=== PATIENT | male | born 1955 | race Caucasian/White ===

== ENCOUNTER 2021-02-23 09:03 | Inpatient (IN) | payer MEDICARE ==
[~2021-02-23] VITALS: Ht 162.6 cm; Wt 82.1 kg
[2021-02-23] MEDS ORDERED: KETOROLAC 30 MG/ML 1ML VIAL IV ONE (09:55)
[2021-02-23] MEDS ORDERED: ONDANSETRON 4MG/2ML VIAL IV ONE (10:00)
[2021-02-23] MEDS ORDERED: ISOVUE-370 76% 100ML VIAL As Ordered ONE (10:34)
[2021-02-23 10:35] LABS: BASO % 0.3 % (0.0-1.0); EOS # 0.1 10^3/uL (0.0-0.5); EOS % 0.6 % (0.0-3.0); HEMATOCRIT 53.4 % (42.0-52.0); HEMOGLOBIN 18.6 g/dl (13.5-17.5); LYMPH # 0.6 10^3/uL (1.5-5.0); LYMPH % 5.3 % (24.0-44.0); MEAN CORPUSCULAR HEMOGLOBIN 31.3 pg (27.0-33.0); MEAN CORPUSCULAR HGB CONC 34.8 g/dl (32.0-36.5); MEAN CORPUSCULAR VOLUME 89.7 fl (80.0-96.0); MONO % 8.8 % (2.0-8.0); NEUTROPHILS # 9.5 10^3/uL (1.5-8.5); NEUTROPHILS % 84.4 % (36.0-66.0); PLATELET COUNT, AUTOMATED 230 10^3/uL (150-450); RED BLOOD COUNT 5.95 10^6/uL (4.30-6.10); WHITE BLOOD COUNT 11.3 10^3/uL (4.0-10.0)
[2021-02-23] MEDS ORDERED: HYDROMORPHONE HCL 0.5 MG/ 0.5 ML SYRINGE (J1170 PER 1) IV ONE (10:45)
[2021-02-23] MEDS ORDERED: NS 500 ML IV ONE (10:55)
[2021-02-23 11:04] LABS: ALBUMIN 4.2 GM/DL (3.2-5.2); ALT/SGPT 35 U/L (12-78); BILIRUBIN,DIRECT 0.3 MG/DL (0.0-0.2); BILIRUBIN,TOTAL 1.2 MG/DL (0.2-1.0); LIPASE 147 U/L (73-393); TOTAL PROTEIN 7.4 GM/DL (6.4-8.2)
--- NOTE | 2021-02-23 11:08 | REP ---
INDICATION: r flank and RLQ pain. COMPARISON: None TECHNIQUE: Axial contrast-enhanced images from the lung bases to the pubic symphysis using 100 cc Isovue 370 intravenous contrast material. Coronal and sagittal reformations obtained. This CT examination was performed using the following dose reduction techniques: Automated exposure control, adjustment of mA and/or kv according to the patient's size, and the use of iterative reconstruction technique. FINDINGS: Acute right-sided obstructive uropathy with perinephric stranding and proximal hydroureteronephrosis secondary to a 5 mm obstructing calculus at the ureteropelvic junction (series 201; images 84-86). Left kidney/ureter appears normal. Liver, spleen, pancreas, and bilateral adrenal glands are normal. Prior cholecystectomy noted. The enteric system is without obstruction or acute inflammatory process. Normal terminal ileum and appendix are identified in the right lower quadrant. Sigmoid diverticulosis noted without acute diverticulitis. Pelvis demonstrates heterogeneous mildly enlarged prostate gland with irregular mass effect on the base of the bladder. Small fat containing left inguinal hernia noted. No ascites. No free air. No adenopathy. Abdominal aorta and vasculature without aneurysm or dissection. Skeletal structures intact. Lung bases clear. IMPRESSION: Acute right-sided obstructive uropathy with a 5 mm obstructing calculus at the ureteropelvic junction. Enlarged prostate gland with irregular mass effect on the base of the bladder may warrant further investigation. Diverticulosis. <Electronically signed by Aniceto Renee > 02/23/21 [id number]
[2021-02-23] MEDS ORDERED: NS 1,000 ML IV ONE ×2 (11:10)
--- NOTE | 2021-02-23 11:31 | REP ---
INDICATION: r/o hernia COMPARISON: None. TECHNIQUE: Limited directed Grayscale B-mode ultrasound examination using linear high-frequency transducer. FINDINGS: Directed ultrasound examination of the bilateral groin/inguinal regions demonstrates a reducible fat containing left inguinal hernia at the internal ring. Inguinal defect measures approximately 1 cm and remains relatively stable and Valsalva. No evidence for right inguinal hernia. IMPRESSION: Small reducible fat containing left inguinal hernia identified. <Electronically signed by Aniceto Renee > 02/23/21 [id number]
--- NOTE | 2021-02-23 11:31 | REP ---
INDICATION: testicular pain. COMPARISON: None. TECHNIQUE: Bilateral testicular ultrasound FINDINGS: The right testicle measures 3.8 x 2.4 x 2.5 cm and the left testicle measures 4.1 x 2.2 x 2.9 cm. In the right testicle there is a hypoechoic 1.3 x 1 x 1.1 cm sized smoothly marginated structure. Color Doppler on this shows no evidence of internal blood flow. Doppler on the remainder of the testicle shows normal parenchymal blood flow. There is a small hydrocele. There is no varicocele. The left testicular parenchymal echo pattern and vascular pattern is within normal limits. There is a slight hydrocele. There is no varicocele. No significant spermatocele is seen on either side. The right testicular RI is 0.73 and the left is 0.64 IMPRESSION: Complex appearing structure in the right testicle which has diffuse near uniform low-level echoes throughout, as described above. Exact etiology uncertain. Neoplastic change cannot be completely excluded. Urological consultation is recommended. Other findings as described above. <Electronically signed by Sunil Mireles > 02/23/21 [id number]
[2021-02-23 11:47] LABS: CK-MB VALUE MASS 2.1 NG/ML (<3.6); CPK CREATINE PHOSPHOKINASE 76 U/L (39-308); MB/CK RELATIVE INDEX 2.76 (< OR =4); TROPONIN I < 0.02 NG/ML (< 0.10)
--- NOTE | 2021-02-23 12:27 | SMCUROLCON ---
Urology Consultation General Date of Consultation 02/23/21 Reason For Consultation asked to see re proximal right ureteral stone about 5mm History of Present Illness 65yo fellow with h/o stones. Presents with pain on the right, groin and scrotum. Nausea, sweating. Ct shows 5mm proximal right ureteral stone. Pain difficult to control in ER. Pt admitted for pain control, ivf, likely stent placement. Past Medical History Medical History htn, bph, hypothyroidism, sleep apnea, stones Surgical Hstory turp oral surgery cholecystectomy colonoscopy Family History Family History father and brother with prostate ca Social History Social History nonsmoker Medications Current Medications losartan, simvastatin, amlodipine, citalopram, levothyroxine, omeprazole, soratinex Allergies Allergies: Coded Allergies: No Known Allergies (Unverified , 02/23/21) Review of Systems General: Denies: Night Sweats Constitutional: Reports: Sweats Eyes: Denies: Vision change ENT: Denies: Head Aches Skin: Denies: Jaundice Pulmonary: Denies: Dyspnea Cardiovascular: Denies Chest Pain Gastrointestinal: Reports: Nausea Genitourinary: Reports: Other Symptoms (pain on right) Hematologic: Denies: Enlarged Lymph Nodes Endocrine: Denies: Polydipsia Musculoskeletal: Reports: Other Symptoms (no new bony pain) Neurological: Denies: Change in Speech Psych: Reports: Mood Normal Physical Examination General Exam: Cooperative EYE EXAM: Conjunctiva & lids normal ENT EXAM: Mucous membr. moist/pink Neck Exam: Supple Chest Exam: Clear to auscultation Heart Exam: Regular Rhythm Abdomen Exam: Soft Male Exam: Normal Genital Exam Extremity Exam: No: Cyanosis Skin Exam: Nl turgor and temperature Neuro Exam: Normal Gait Psych Exam: Mental status NL Vital Signs/I&O Vital Signs Date Time Temp Pulse Resp B/P (MAP) Pulse Ox O2 Delivery O2 Flow Rate FiO2 02/23/21 10:47 18 02/23/21 10:07 02/23/21 09:03 96.0 65 99 Room Air Laboratory Data 24H Labs Laboratory Tests 2 02/23/21 10:16: Immature Granulocyte % (Auto) 0.6, Neutrophils (%) (Auto) 84.4H, Lymphocytes (%) (Auto) 5.3L, Monocytes (%) (Auto) 8.8H, Eosinophils (%) (Auto) 0.6, Basophils (%) (Auto) 0.3, Neutrophils # (Auto) 9.5H, Lymphocytes # (Auto) 0.6L, Monocytes # (Auto) 1.0H, Eosinophils # (Auto) 0.1, Basophils # (Auto) 0.0, Nucleated Red Blood Cells % (auto) 0.0, Lactic Acid Level 6.1*H, Total Bilirubin 1.2H, Direct Bilirubin 0.3H, Aspartate Amino Transf (AST/SGOT) 21, Alanine Aminotransferase (ALT/SGPT) 35, Alkaline Phosphatase 86, Total Creatine Kinase 76, Creatine Kinase MB 2.1, Creatine Kinase MB Relative Index 2.76, Troponin I < 0.02, Total Protein 7.4, Albumin 4.2, Albumin/Globulin Ratio 1.3, Lipase 147, Thyroid Stimulating Hormone (TSH) 2.250 02/23/21 10:27: POC Glucose (Misc Panel) 133H, POC Sodium (Misc Panel) 142, POC Potassium (Misc Panel) 4.1, POC Chloride (Misc Panel) 99, POC Total CO2 (Misc Panel) 23.0, POC Blood Urea Nitrogen (Misc Panel 11, POC Ionized Calcium (Misc Panel) 4.9, POC Creatinine (Misc Panel) 1.2, POC Hematocrit (Misc Panel) 53.0H 02/23/21 11:21: Urine Color STRAW, Urine Appearance CLEAR, Urine pH 8.0, Urine Specific [place] 1.023, Urine Protein NEGATIVE, Urine Glucose (UA) NEGATIVE, Urine Ketones 1+H, Urine Blood 2+H, Urine Nitrite NEGATIVE, Urine Bilirubin NEGATIVE, Urine Urobilinogen 0.2, Urine Leukocyte Esterase NEGATIVE, Urine WBC (Auto) 2, Urine RBC (Auto) 32H, Urine Hyaline Casts (Auto) 0, Urine Bacteria (Auto) NEGATIVE, Urine Squamous Epithelial Cells 0, Urine Mucus (Auto) SMALL, Urine Sperm (Auto) CBC/BMP Laboratory Tests 02/23/21 10:16 Assessment ER called me about pt. Pt to be admitted because of pain control. Ct reviewed - stone in proximal right ureter causing mild hydro. Wbc about 11. No fevers. Elevated lactate. Creatinine normal. I put pt on schedule for cystoscopy with stent placement at 830am tomorrow. Npo post midnight. Covid testing. Plan cysto with stent tomorrow morning uscope with stone removal some other time d/w pt and he agrees Time Spent on Consult: Time Spent / Consult (Minutes): 30 YOLI LEWIS MD Feb 23, 2021 12:27
[2021-02-23] MEDS ORDERED: ACETAMINOPHEN TAB 650MG DOSE (2X325MG) PO PRN (13:00)
[2021-02-23] MEDS ORDERED: MAALOX 30 ML SUSP *UDC PO PRN (13:00)
[2021-02-23] MEDS ORDERED: MOM 30ML SUSPENSION UDC PO PRN (13:00)
[2021-02-23] MEDS ORDERED: DICL1GEL3 TOP (13:51)
[2021-02-23] MEDS ORDERED: LOSA100T50 PO (13:51)
[2021-02-23] MEDS ORDERED: OMEP-218 PO (13:51)
[2021-02-23] MEDS ORDERED: CELE1CAP9 PO (13:51)
[2021-02-23] MEDS ORDERED: AMLO1TAB24 PO (13:51)
[2021-02-23] MEDS ORDERED: LEVO50TA5 PO (13:51)
[2021-02-23] MEDS ORDERED: CITA20TA6 PO (13:51)
[2021-02-23] MEDS ORDERED: SIMV10TA21 PO (13:51)
--- NOTE | 2021-02-23 14:15 | HPEPDOC ---
General Date of Admission Date of Service: Feb 23, 2021 Chief Complaint The patient is a 65-year-old male admitted with a reason for visit of Kidney Prob. History of Present Illness HPI Pt presents w 14 hr Hx of R lower back pain which radiates along the R groin and into the testicular region. He states the pain began at 10pm last night and has increased in severity since then, he rated it at 10/10 last night and prior to admission. Pain is described as sharp and constant. He was unable to sleep d/t pain and this morning he began having nausea and felt unstable on his feet while walking and was diaphoretic. Currently the pain is being medically managed and is rated as 2/10. Pt took 2 Tylenol last night with no remission of sx, and position does not change pain. Pt has been able to urinate w/out pain, and describes urine as clear. OFF NOTE: Denies prior testicular pain or swelling Admits to previous kidney stones which he has passed at home In approx 1989-stone complication led to acute renal situation-led to nephrostomy tube placement (probable L kidney, but pt cannot recall) PMHx: HTN dyslipidemia neg Diabetes psoriasis BPH hernias sleep apnea hypothyroidism SxHx: Prostate reduction (5 years ago-sees a Urologist) hernia reduction and mesh placement cholecystectomy uvulopalatopharyngoplasty colonoscopy 4 yrs ago (revealed 1 polyp) FHx: Father Hx prostate Ca in his 70s, HTN, and bypass surgery Mother Hx diabetes, and renal disease Brother d/t stroke Brother (2) Hx prostate Ca at 63, alive and currently w Pt SHx: has never smoked, no illicit drug use, one glass of wine per night. Pt is from [place] and has been in town for 2 weeks. ROS Gen: denies fever, chills HEENT: denies vision changes, dysphagia, DOWNEY, N/V RESP: denies SOB or pain on deep inspiration CVS: denies chest pain or palpitations ABD: denies pain w bowel mvmt or blood in stool, admits to R sided lower abd pain prior to medical pain mgmt : denies dysuria, denies recent UTI, admits to urinary frequency, diminished stream strength, and mild retention post-void MSK: denies weakness or paresthesias Skin: denies swelling, rash, pruritus Physical Exam Gen: Pleasant, in no acute distress. Psych: A+Ox3 HEENT: PERRLA, EOMI, atraumatic, normocephalic, moist oral cavity, neck supple, no cervical lymphadenopathy, no JVD. RESP: CTA b/l, no rhonchi, wheezes, or crackles. CVS: RRR, no murmurs, rubs, or gallops. ABD: soft, ND, not tender to palpation, normoactive bowel sounds. MSK: plantar/dorsiflexion 5/5 b/l. Skin: no lower extremity edema, no rash, normal turgor and temp. IMAGING Scrotal, US (02/23) Complex appearing structure in the right testicle which has diffuse near uniform low-level echoes throughout, as described above. Exact etiology uncertain. Neoplastic change cannot be completely excluded. Pelvis, limited US (02/23) Small reducible fat containing left inguinal hernia identified. CT ABD/PEL W/IV CONTRAST ONLY (02/23) Reported as-Acute right-sided obstructive uropathy with a 5 mm obstructing calculus at the ureteropelvic junction. Enlarged prostate gland with irregular mass effect on the base of the bladder may warrant further investigation. Diverticulosis. Assessment Pt is a 65yo M who presented to ER w approx 14 hr Hx of R sided lower back pain which radiates to R lower quadrant, and along R groin into testicular region. PMHx significant for HTN managed w losartan, and amlodipine, dyslipidemia managed w simvastatin, psoriasis managed w soratinex, BPH, hernias, hypothyroidism managed w levothyroxine, GERD managed with omeprazole, previous nephrolithiasis which resolved w/out treatment. Pt has Hx of stone complication approx 30 yrs ago which led to acute renal situation, and was treated w nephrostomy tube placement (probable L kidney, but pt cannot recall). [Lactic acid elev at 6.1 Hgb+Hct elv at 18.6/53.4 Leukocytosis present (WBC 11.3). Pt given 2L IV fluid bolus in ED. Pt received Dilaudid 1mg IV once in ED for pain control. Plan 1. Nephrolithiasis Will order UA. Started on Ceftriaxone 50ml @ 100mls/hr IV Q24H. Ordered filter for urine to catch any stone passage. Urology has been consulted-pt is scheduled for surgery at 8:30am tomorrow. Pt may resume regular diet for now-NPO after midnight. Will follow labs. Repeat lactate was normal at 0.9. Blood cultures collected and pending. Imaging reveals pt has obstructive hydronephrosis, but BUN and creatinine are normal. 2. Testicular Mass US (02/23) reported as- complex appearing structure in the right testicle which has diffuse near uniform low-level echoes throughout. Exact etiology uncertain. Neoplastic change cannot be completely excluded-Urology will be consulted. Further evaluation needed, may need further workout during this hospital stay or in outpatient setting. 3. DVT Prophylaxis Ordered Heparin SC. 4.HTN Will c/w Amlodipine 50mg and Losartan 100mg. 5. Dyslipidemia Will c/w simvastatin 10mg PO once daily. 6. Psoriasis Will c/w soratinex. 7. Hypothyroidism Will c/w levothyroxine 50mg PO once daily. 8. GERD Will c/w omeprazole 20mg PO once daily. 9. Depression/Anxiety Will c/w citalopram 20mg PO once daily. Attending Attestation: I personally performed the physical exam and medical decision making and discussed the management with the medical student. I reviewed the medical students note and hereby verify the history, physical exam, and medical decision making documented by the medical student, the documented findings, and plan of care. Home Medications Scheduled Amlodipine Besylate (Amlodipine Besylate) 5 Mg Tablet, 5 MG PO DAILY, (Reported) Citalopram Hydrobromide (Citalopram HBr) 20 Mg Tablet, 20 MG PO DAILY, (Reported) Levothyroxine Sodium (Levothyroxine Sodium) 50 Mcg Tablet, 50 MCG PO DAILY, (Reported) Losartan Potassium (Losartan Potassium) 100 Mg Tablet, 100 MG PO DAILY, (Reported) Simvastatin (Simvastatin) 10 Mg Tablet, 10 MG PO QHS, (Reported) Scheduled PRN Celecoxib (Celecoxib) 200 Mg Capsule, 200 MG PO DAILY PRN for PAIN LEVEL 1-5, (Reported) Diclofenac Sodium (Diclofenac Sodium) 1% 100GM Gel..gram., 2 GM TOP QID PRN for PAIN LEVEL 1-5, (Reported) APPLY TO FEET Omeprazole (Omeprazole) 20 Mg Capsule.dr, 20 MG PO DAILY PRN for HEARTBURN, (Reported) Allergies Coded Allergies: No Known Allergies (Unverified , 7/9/21) A-FIB/CHADSVASC A-FIB History Current/History of A-Fib/PAF?: No Current PO Anticoag Therapy: No Vital Signs Vital Signs Date Time Temp Pulse Resp B/P (MAP) Pulse Ox O2 Delivery O2 Flow Rate FiO2 02/23/21 12:47 61 96 02/23/21 12:45 171/107 (128) 02/23/21 12:30 16 02/23/21 09:03 96.0 Room Air Laboratory Data Labs 24H Laboratory Tests 2 02/23/21 10:16: Immature Granulocyte % (Auto) 0.6, Neutrophils (%) (Auto) 84.4H, Lymphocytes (%) (Auto) 5.3L, Monocytes (%) (Auto) 8.8H, Eosinophils (%) (Auto) 0.6, Basophils (%) (Auto) 0.3, Neutrophils # (Auto) 9.5H, Lymphocytes # (Auto) 0.6L, Monocytes # (Auto) 1.0H, Eosinophils # (Auto) 0.1, Basophils # (Auto) 0.0, Nucleated Red Blood Cells % (auto) 0.0, Lactic Acid Level 6.1*H, Total Bilirubin 1.2H, Direct Bilirubin 0.3H, Aspartate Amino Transf (AST/SGOT) 21, Alanine Aminotransferase (ALT/SGPT) 35, Alkaline Phosphatase 86, Total Creatine Kinase 76, Creatine Kinase MB 2.1, Creatine Kinase MB Relative Index 2.76, Troponin I < 0.02, Total Protein 7.4, Albumin 4.2, Albumin/Globulin Ratio 1.3, Lipase 147, Prostate Specific Antigen Screen 3.95, Thyroid Stimulating Hormone (TSH) 2.250 02/23/21 10:27: POC Glucose (Misc Panel) 133H, POC Sodium (Misc Panel) 142, POC Potassium (Misc Panel) 4.1, POC Chloride (Misc Panel) 99, POC Total CO2 (Misc Panel) 23.0, POC Blood Urea Nitrogen (Misc Panel 11, POC Ionized Calcium (Misc Panel) 4.9, POC Creatinine (Misc Panel) 1.2, POC Hematocrit (Misc Panel) 53.0H 02/23/21 11:21: Urine Color STRAW, Urine Appearance CLEAR, Urine pH 8.0, Urine Specific [place] 1.023, Urine Protein NEGATIVE, Urine Glucose (UA) NEGATIVE, Urine Ketones 1+H, Urine Blood 2+H, Urine Nitrite NEGATIVE, Urine Bilirubin NEGATIVE, Urine Urobilinogen 0.2, Urine Leukocyte Esterase NEGATIVE, Urine WBC (Auto) 2, Urine RBC (Auto) 32H, Urine Hyaline Casts (Auto) 0, Urine Bacteria (Auto) NEGATIVE, Urine Squamous Epithelial Cells 0, Urine Mucus (Auto) SMALL, Urine Sperm (Auto) CBC/BMP Laboratory Tests 02/23/21 10:16 Plan / VTE VTE Prophylaxis Ordered?: Yes TAWANA NICHOLS S-3 Feb 23, 2021 14:15 VIANNEY BRICENO MD Feb 24, 2021 06:31
[2021-02-23 14:28] LABS: RSV AMPLIFICATION NEGATIVE (NEGATIVE)
[2021-02-23] MEDS ORDERED: cefTRIAXone SOD 1 GM in D5W MINI-BAG PLUS 50 ML IV SCH (16:00)
[2021-02-23 16:27] VITALS: BP 125/76
[2021-02-23] MEDS ORDERED: OMEPRAZOLE 20 MG CAP PO PRN (16:50)
[2021-02-23] MEDS ORDERED: NS 0.45% 1,000 ML IV SCH (17:00)
[2021-02-23 17:26] VITALS: O2SAT 94
[2021-02-23] MEDS ORDERED: SIMVASTATIN 10 MG TAB PO SCH (21:00)
[2021-02-23] MEDS: DOCUSATE SODIUM 100MG CAPSULE PO SCH (21:03)
[2021-02-23] MEDS: HEPARIN SOD (PORCINE) 5000UNITS/ML 1ML VIAL/SYRINGE SC SCH (21:04)
[2021-02-23 22:00] VITALS: BP 134/68
[2021-02-23] MEDS ORDERED: KETOROLAC 30 MG/ML 1ML VIAL IV PRN (23:40)
[2021-02-23] MEDS: MORPHINE 2 MG/ML 1ML VIAL (J2270) IV PRN (23:46)
[2021-02-24] VITALS (9 sets, daily range): BP systolic 130–170; BP diastolic 71–83; O2SAT 90
[2021-02-24] MEDS: MORPHINE 2 MG/ML 1ML VIAL (J2270) IV PRN (05:50)
[2021-02-24 05:55] LABS: BASO % 0.3 % (0.0-1.0); EOS # 0.2 10^3/uL (0.0-0.5); EOS % 2.2 % (0.0-3.0); HEMATOCRIT 46.5 % (42.0-52.0); HEMOGLOBIN 15.9 g/dl (13.5-17.5); LYMPH # 0.8 10^3/uL (1.5-5.0); LYMPH % 10.7 % (24.0-44.0); MEAN CORPUSCULAR HEMOGLOBIN 31.5 pg (27.0-33.0); MEAN CORPUSCULAR HGB CONC 34.2 g/dl (32.0-36.5); MEAN CORPUSCULAR VOLUME 92.1 fl (80.0-96.0); MONO % 13.2 % (2.0-8.0); NEUTROPHILS # 5.8 10^3/uL (1.5-8.5); NEUTROPHILS % 73.2 % (36.0-66.0); PLATELET COUNT, AUTOMATED 179 10^3/uL (150-450); RED BLOOD COUNT 5.05 10^6/uL (4.30-6.10); WHITE BLOOD COUNT 7.9 10^3/uL (4.0-10.0)
[2021-02-24] MEDS ORDERED: LEVOTHYROXINE 50MCG TABLET (0.05MG) PO SCH (06:00)
[2021-02-24 06:42] LABS: CALCIUM LEVEL 8.2 MG/DL (8.8-10.2); CREATININE FOR GFR 1.47 MG/DL (0.70-1.30); GLOMERULAR FILTRATION RATE 50.9 (>49); POTASSIUM SERUM 4.3 MEQ/L (3.5-5.1)
[2021-02-24] MEDS: HEPARIN SOD (PORCINE) 5000UNITS/ML 1ML VIAL/SYRINGE SC SCH (07:35)
[2021-02-24] MEDS ORDERED: fentaNYL 100 MCG/2 ML INJECTION (J3010) As Ordered ONE (07:38)
[2021-02-24] MEDS ORDERED: propofoL 200 MG/20 ML VIAL As Ordered ONE (07:38)
[2021-02-24] MEDS ORDERED: LIDOCAINE 2% 100MG/5ML SDV (FOR ANES.) As Ordered ONE (07:38)
[2021-02-24] MEDS ORDERED: MIDAZOLAM INJ 2MG/2ML VIAL (J2250 PER 1MG) As Ordered ONE (07:38)
[2021-02-24] MEDS ORDERED: ONDANSETRON 4MG/2ML VIAL As Ordered ONE (07:38)
[2021-02-24] MEDS ORDERED: dexameTHASONE 4 MG/ML 1ML VIAL (J1100 PER 1MG) As Ordered ONE (07:38)
[2021-02-24] MEDS: DOCUSATE SODIUM 100MG CAPSULE PO SCH (07:40)
[2021-02-24] MEDS ORDERED: CONRAY-60 60% 50ML VIAL (Q9961) As Ordered ONE (07:48)
[2021-02-24] MEDS ORDERED: DESFLURANE 240 ML INHALANT As Ordered ONE (07:51)
[2021-02-24] MEDS ORDERED: CIPROFLOXACIN/D5W 400 MG/200 ML BAG (J0744) As Ordered ONE (08:29)
--- NOTE | 2021-02-24 08:55 | IPNPDOC ---
Date Seen The patient was seen on 02/24/21. Progress Note s/p cysto with right stent placement can go home today from my standpoint home on oral antibiotic, Pyridium, oxybutynin and pain medication next step is right ureteroscopy with stone extraction thank you [phone] VS, I&O, 24H, [place] Vital Signs/I&O Vital Signs Date Time Temp Pulse Resp B/P (MAP) Pulse Ox O2 Delivery O2 Flow Rate FiO2 02/24/21 07:42 56 163/83 02/24/21 06:00 97.3 1 94 Room Air I&O- Last 24 Hours up to 6 AM 02/24/21 06:00 Intake Total 1570 ml Output Total 1160 ml Balance 410 ml Laboratory Data 24H LABS Laboratory Tests 2 02/23/21 10:16: Immature Granulocyte % (Auto) 0.6, Neutrophils (%) (Auto) 84.4H, Lymphocytes (%) (Auto) 5.3L, Monocytes (%) (Auto) 8.8H, Eosinophils (%) (Auto) 0.6, Basophils (%) (Auto) 0.3, Neutrophils # (Auto) 9.5H, Lymphocytes # (Auto) 0.6L, Monocytes # (Auto) 1.0H, Eosinophils # (Auto) 0.1, Basophils # (Auto) 0.0, Nucleated Red Blood Cells % (auto) 0.0, Lactic Acid Level 6.1*H, Total Bilirubin 1.2H, Direct Bilirubin 0.3H, Aspartate Amino Transf (AST/SGOT) 21, Alanine Aminotransferase (ALT/SGPT) 35, Alkaline Phosphatase 86, Total Creatine Kinase 76, Creatine Kinase MB 2.1, Creatine Kinase MB Relative Index 2.76, Troponin I < 0.02, Total Protein 7.4, Albumin 4.2, Albumin/Globulin Ratio 1.3, Lipase 147, Prostate Specific Antigen Screen 3.95, Thyroid Stimulating Hormone (TSH) 2.250 02/23/21 10:27: POC Glucose (Misc Panel) 133H, POC Sodium (Misc Panel) 142, POC Potassium (Misc Panel) 4.1, POC Chloride (Misc Panel) 99, POC Total CO2 (Misc Panel) 23.0, POC Blood Urea Nitrogen (Misc Panel 11, POC Ionized Calcium (Misc Panel) 4.9, POC Creatinine (Misc Panel) 1.2, POC Hematocrit ([facility] Panel) 53.0H 02/23/21 11:21: Urine Color STRAW, Urine Appearance CLEAR, Urine pH 8.0, Urine Specific [place] 1.023, Urine Protein NEGATIVE, Urine Glucose (UA) NEGATIVE, Urine Ketones 1+H, Urine Blood 2+H, Urine Nitrite NEGATIVE, Urine Bilirubin NEGATIVE, Urine Urobilinogen 0.2, Urine Leukocyte Esterase NEGATIVE, Urine WBC (Auto) 2, Urine RBC (Auto) 32H, Urine Hyaline Casts (Auto) 0, Urine Bacteria (Auto) NEGATIVE, Urine Squamous Epithelial Cells 0, Urine Mucus (Auto) SMALL, Urine Sperm (Auto) 02/23/21 13:40: Coronavirus (COVID-19)(PCR) NEGATIVE, Influenza Type A (RT-PCR) NEGATIVE, Influenza Type B (RT-PCR) NEGATIVE, Respiratory Syncytial Virus (PCR) NEGATIVE 02/23/21 14:47: Urine Color STRAW, Urine Appearance CLEAR, Urine pH 7.0, Urine Specific [place] 1.055, Urine Protein NEGATIVE, Urine Glucose (UA) NEGATIVE, Urine Ketones 1+H, Urine Blood NEGATIVE, Urine Nitrite NEGATIVE, Urine Bilirubin NEGATIVE, Urine Urobilinogen 0.2, Urine Leukocyte Esterase NEGATIVE, Urine WBC (Auto) 0, Urine RBC (Auto) 1, Urine Hyaline Casts (Auto) 0, Urine Bacteria (Auto) NEGATIVE, Urine Squamous Epithelial Cells 0, Urine Sperm (Auto) 02/23/21 15:31: Lactic Acid Followup at 4 Hours 0.9 02/24/21 05:24: Immature Granulocyte % (Auto) 0.4, Neutrophils (%) (Auto) 73.2H, Lymphocytes (%) (Auto) 10.7L, Monocytes (%) (Auto) 13.2H, Eosinophils (%) (Auto) 2.2, Basophils (%) (Auto) 0.3, Neutrophils # (Auto) 5.8, Lymphocytes # (Auto) 0.8L, Monocytes # (Auto) 1.0H, Eosinophils # (Auto) 0.2, Basophils # (Auto) 0.0, Nucleated Red Blood Cells % (auto) 0.0, Anion Gap 5L, Glomerular Filtration Rate 50.9, Calcium Level 8.2L CBC/BMP Laboratory Tests 02/23/21 10:16 02/24/21 05:24 Microbiology Microbiology 02/23/21 Blood Culture, Received Pending 02/23/21 Blood Culture, Received Pending 02/23/21 Urine Culture, Received Pending YOLI LEWIS MD Feb 24, 2021 08:55
[2021-02-24] MEDS ORDERED: amLODIPine 5 MG TAB PO SCH (09:00)
[2021-02-24] MEDS ORDERED: oxyBUTYnin 5 MG TAB PO SCH (09:00)
[2021-02-24] MEDS ORDERED: LOSARTAN 50MG TABLET PO SCH (09:00)
[2021-02-24] MEDS ORDERED: PHENAZOPYRIDINE 100 MG TAB PO SCH (09:00)
[2021-02-24] MEDS ORDERED: CitaloPRAM (CeleXA) 20 MG TAB PO SCH (09:00)
--- NOTE | 2021-02-24 09:01 | REP ---
INDICATION: RIGHT STENT, RETROGRADE. COMPARISON: None. TECHNIQUE: Intraoperative fluoroscopic imaging FINDINGS: Patient is status post right ureteral stent placement. Total fluoroscopic time 10 seconds. IMPRESSION: Right ureteral stent placement. <Electronically signed by Aniceto Renee > 02/24/21 0822
[2021-02-24] MEDS ORDERED: LR 1,000 ML IV SCH (09:55)
[2021-02-24] MEDS ORDERED: HYDROMORPHONE HCL 0.5 MG/ 0.5 ML SYRINGE (J1170 PER 1) IV PRN (09:55)
[2021-02-24] MEDS ORDERED: ONDANSETRON 4MG/2ML VIAL IV PRN (09:55)
[2021-02-24] MEDS ORDERED: fentaNYL 100 MCG/2 ML INJECTION (J3010) IV PRN (09:55)
[2021-02-24] MEDS ORDERED: oxyCODONE 5MG TAB PO PRN (09:55)
[2021-02-24] MEDS ORDERED: HYDR-3713 PO (13:00)
[2021-02-24] MEDS ORDERED: CIPR-249 PO ×2 (13:00→15:08)
[2021-02-24] MEDS ORDERED: PYRI0.4T PO ×2 (13:00→15:08)
[2021-02-24] MEDS ORDERED: OXYB5TAB10 PO ×2 (13:00→15:08)
[2021-02-24] MEDS ORDERED: HYDR-3715 PO ×2 (14:10→15:04)
--- NOTE | 2021-02-24 19:23 | DS.PDOC ---
Discharge Summary General Date of Admission Feb 23, 2021 at 13:44 Date of Discharge February 24, 2021 Attending Physician: VIANNEY BRICENO MD Discharge Summary PROCEDURES PERFORMED DURING STAY: Cystoscopy with right-sided stent placement ADMITTING DIAGNOSES: Obstructive uropathy, nephrolithiasis HTN Dyslipidemia Psoriasis BPH Hernia Sleep apnea Hypothyroidism DISCHARGE DIAGNOSES: S/p right ureter stent placement HTN Dyslipidemia Psoriasis BPH Hernia Sleep apnea Hypothyroidism. COMPLICATIONS/CHIEF COMPLAINT: Hydronephrosis. HISTORY OF PRESENT ILLNESS: 65-year-old male patient who presented to the emergency department with right-sided low back pain radiating along his right groin into his testicle region. Reports the pain started a day before and gradually increased in severity. Reports having nausea and was diaphoretic on presentation. In the ED he was evaluated and the CT imaging showed he had an obstructive uropathy and patient was decided to be admitted to the hospital for further management and evaluation. HOSPITAL COURSE: 1. Nephrolithiasis -Patient was diagnosed with obstructive nephropathy, was started on IV antibiotics, his pain was managed with pain medication. -Urology was consulted and patient has a stent placed in by urology on the day of discharge. -Blood cultures were still pending. Patient will be discharged home on antibiotics Cipro 2. Testicular Mass Testicular ultrasound (02/23) reported as- complex appearing structure in the right testicle which has diffuse near uniform low-level echoes throughout. Exact etiology uncertain. Neoplastic change cannot be completely excluded-Urology will be consulted. Patient would be needing further evaluation of this testicular mass upon discharge. We will make a note to PCP in the discharge instructions. 3. DVT Prophylaxis Ordered Heparin SC. 4.HTN He was continued on amlodipine 50mg and Losartan 100mg. 5. Dyslipidemia He was continued on simvastatin 10mg PO once daily. 6. Psoriasis Was continued on soratinex. 7. Hypothyroidism Was continued on levothyroxine 50mg PO once daily. 8. GERD Continued on omeprazole 20mg PO once daily. 9. Depression/Anxiety Continued on citalopram 20mg PO once daily. DISCHARGE MEDICATIONS: Please see below. ALLERGIES: Please see below. PHYSICAL EXAMINATION ON DISCHARGE: VITAL SIGNS: Please see below. Gen: Pleasant, in no acute distress. Psych: A+Ox3 HEENT: PERRLA, EOMI, atraumatic, normocephalic, moist oral cavity, neck supple, no cervical lymphadenopathy, no JVD. RESP: CTA b/l, no rhonchi, wheezes, or crackles. CVS: RRR, no murmurs, rubs, or gallops. ABD: soft, ND, not tender to palpation, normoactive bowel sounds. MSK: plantar/dorsiflexion 5/5 b/l. Skin: no lower extremity edema, no rash, normal turgor and temp. LABORATORY DATA: Please see below. IMAGING: Scrotal, US (02/23) Complex appearing structure in the right testicle which has diffuse near uniform low-level echoes throughout, as described above. Exact etiology uncertain. Neoplastic change cannot be completely excluded. Pelvis, limited US (02/23) Small reducible fat containing left inguinal hernia identified. CT ABD/PEL W/IV CONTRAST ONLY (02/23) Reported as-Acute right-sided obstructive uropathy with a 5 mm obstructing calculus at the ureteropelvic junction. Enlarged prostate gland with irregular mass effect on the base of the bladder may warrant further investigation. Diverticulosis. PROGNOSIS: Good ACTIVITY: [As tolerated]. DIET: Low-sodium diet DISCHARGE PLAN: Home DISPOSITION: , Self-Care. DISCHARGE INSTRUCTIONS: 1. Urology office will contact for further appointment for the procedure lithotripsy of the stone 2. Please follow-up with PCP within 1 week. Given that the patient had a mass noted on the testis on scrotal ultrasound he will need need further evaluation of this mass -Patient was discharged on ciprofloxacin 500 mg to be taken 5 days twice a day. -Hydrocodone acetaminophen 5/325 for pain -Oxybutynin 5 mg p.o. twice daily for u urinary discomfort -Pyridium 100 mg twice daily for 3 days. ITEMS TO FOLLOWUP ON ON OUTPATIENT: Follow-up with PCP in 1 week. Patient had an mass noted on his testis on scrotal ultrasound will need evaluation of this mass DISCHARGE CONDITION: [Stable]. TIME SPENT ON DISCHARGE: 35 minutes. Attending Attestation: I saw and evaluated patient. I agree with the findings and plan of care as documented in the residents note. Vital Signs/I&Os Vital Signs Date Time Temp Pulse Resp B/P (MAP) Pulse Ox O2 Delivery O2 Flow Rate FiO2 02/24/21 13:50 98.2 60 20 139/76 (97) 95 Room Air 02/24/21 12:50 1.0 02/24/21 08:57 100 I&O- Last 24 Hours up to 6 AM 02/24/21 05:59 Intake Total 1570 ml Output Total 560 ml Balance 1010 ml Laboratory Data Labs 24H Laboratory Tests 2 02/24/21 05:24: Immature Granulocyte % (Auto) 0.4, Neutrophils (%) (Auto) 73.2H, Lymphocytes (%) (Auto) 10.7L, Monocytes (%) (Auto) 13.2H, Eosinophils (%) (Auto) 2.2, Basophils (%) (Auto) 0.3, Neutrophils # (Auto) 5.8, Lymphocytes # (Auto) 0.8L, Monocytes # (Auto) 1.0H, Eosinophils # (Auto) 0.2, Basophils # (Auto) 0.0, Nucleated Red Blood Cells % (auto) 0.0, Anion Gap 5L, Glomerular Filtration Rate 50.9, Calcium Level 8.2L CBC/BMP Laboratory Tests 02/24/21 05:24 Microbiology Microbiology 02/23/21 Blood Culture - Preliminary, Resulted No growth after 24 hours . All specim... 02/23/21 Blood Culture - Preliminary, Resulted No growth after 24 hours . All specim... 02/23/21 Urine Culture, Received Pending Discharge Medications Scheduled Amlodipine Besylate (Amlodipine Besylate) 5 Mg Tablet, 5 MG PO DAILY, (Reported) Ciprofloxacin HCl (Cipro) 500 Mg Tablet, 500 MG PO BID Citalopram Hydrobromide (Citalopram HBr) 20 Mg Tablet, 20 MG PO DAILY, (Reported) Levothyroxine Sodium (Levothyroxine Sodium) 50 Mcg Tablet, 50 MCG PO DAILY, (Reported) Losartan Potassium (Losartan Potassium) 100 Mg Tablet, 100 MG PO DAILY, (Reported) Oxybutynin Chloride (Oxybutynin Chloride) 5 Mg Tablet, 5 MG PO BID for urinary discomfort Phenazopyridine HCl (Pyridium) 100 Mg Tablet, 100 MG PO TID Simvastatin (Simvastatin) 10 Mg Tablet, 10 MG PO QHS, (Reported) Scheduled PRN Celecoxib (Celecoxib) 200 Mg Capsule, 200 MG PO DAILY PRN for PAIN LEVEL 1-5, (Reported) Diclofenac Sodium (Diclofenac Sodium) 1% 100GM Gel..gram., 2 GM TOP QID PRN for PAIN LEVEL 1-5, (Reported) APPLY TO FEET Hydrocodone/Acetaminophen (Hydrocodone-Acetamin 5-325 mg) 1 Each Tablet, 1 TAB PO Q6HP PRN for pain Omeprazole (Omeprazole) 20 Mg Capsule.dr, 20 MG PO DAILY PRN for HEARTBURN, (Reported) Allergies Coded Allergies: No Known Allergies (Unverified , 02/23/21) Cas Thomason MD Feb 24, 2021 19:23 VIANNEY BRICENO MD Feb 25, 2021 14:00
--- NOTE | 2021-02-26 14:48 | ROOPDOC ---
[facility] Report Of Operation Report of Operation DATE OF PROCEDURE: 02/24/21 PREPROCEDURE DIAGNOSES: [Right ureteral stone]. POSTPROCEDURE DIAGNOSES: [Same]. PROCEDURE PERFORMED: [Cystoscopy, fluoroscopy, retrograde pyelography, placement of ureteral stent right side]. SURGEON: [MD Marta HEEL FORMER: [None], ANESTHESIA: [General]. ESTIMATED BLOOD LOSS: Approximately [minimal] mL. COMPLICATIONS: [None]. REMARKS: [65-year-old white male. Right flank pain. Found to have a right ureteral stone. Stent placement was arranged. Informed consent was obtained. Risks were discussed such as infection, bleeding, scarring, pain, injury to the urinary tract, failure of surgery, need for more surgery, risk of anesthesia and others.]. FINDINGS: SPECIMENS REMOVED: [None] PROCEDURE NOTE: . DESCRIPTION OF PROCEDURE: [I discussed the surgery with the patient. Questions answered. He wished to proceed. Patient was brought to the operating room. Surgery was done under antimicrobial coverage. General anesthesia was secured without difficulty. Dorsolithotomy position. Well-padded. Prepping and draping were performed in the usual sterile fashion. Timeout was performed. Cystoscopy was performed with a rigid cystoscope. The right ureteral orifice was identified. No stone in the bladder. A retrograde pyelogram was obtained by injecting contrast through a 5 Palestinian open-ended ureteral catheter. Fluoroscopy was used. Filling defect noted. Using the Seldinger technique a 6 Palestinian multilength stent was placed. Bladder was emptied and the cystoscope was removed. Patient tolerated everything well. Ureteroscopy in the future.]. YOLI LEWIS MD Feb 26, 2021 14:48
== END 2021-02-24 15:20 | disposition home or self-care (01) | DRG 661 ==
LOC: M ED 09:03 → M ED INP 13:44 → M MSPAV 16:23
PROVIDERS: ADMIT Internal Medicine; ATTEND Internal Medicine
PROC: 0TJB8ZZ Inspection of Bladder, Via Natural or Artificial Opening Endoscopic (ICD-10-PCS; 2021-02-24)
PROC: 0T768ZZ Dilation of Right Ureter, Via Natural or Artificial Opening Endoscopic (ICD-10-PCS; principal; 2021-02-24 08:30)
DX: N13.9 Obstructive and reflux uropathy, unspecified (principal); N20.2 Calculus of kidney with calculus of ureter; I10 Essential (primary) hypertension; E78.5 Hyperlipidemia, unspecified; L40.9 Psoriasis, unspecified; N40.1 Benign prostatic hyperplasia with lower urinary tract symptoms; G47.33 Obstructive sleep apnea (adult) (pediatric); E03.9 Hypothyroidism, unspecified; N50.89 Other specified disorders of the male genital organs; K21.9 Gastro-esophageal reflux disease without esophagitis; F41.9 Anxiety disorder, unspecified; F32.9 Major depressive disorder, single episode, unspecified; Z79.899 Other long term (current) drug therapy; Z20.822 Contact with and (suspected) exposure to COVID-19

== ENCOUNTER → 2021-03-19 | Outpatient (CLI) | payer MEDICARE ==
[~2021-03-19] MED LIST: AMLO1TAB24 PO; BACT400T PO; CELE1CAP9 PO; CIPR-249 PO; CITA20TA6 PO; DICL1GEL3 TOP; HYDR-3713 PO; HYDR-3715 PO; LEVO50TA5 PO; LOSA100T50 PO; OMEP-218 PO; OXYB5TAB10 PO; PYRI0.4T PO; PYRI1TAB5 PO; SIMV10TA21 PO; [UNRECOGNIZED DRUG - CODE] PO
--- NOTE | 2021-03-19 14:16 | REP ---
INDICATION: PRE OP TESTING. COMPARISON: None. TECHNIQUE: Upright PA and lateral images of the chest were obtained. FINDINGS: The lungs are clear. The heart borders, mediastinum and pulmonary vascular pattern are normal. The upper abdominal bowel gas pattern is normal. There are no bony abnormalities of the chest. Status post cholecystectomy. IMPRESSION: No evidence of acute cardiopulmonary pathology. <Electronically signed by Josue Osman > 03/19/21 [id number]
[2021-03-19 17:25] LABS: APPEARANCE, URINE HAZY (CLEAR); BACTERIA, URINE AUTO 1+ (NEGATIVE); BILIRUBIN, URINE AUTO NEGATIVE (NEGATIVE); BLOOD, URINE BLOOD 2+ (NEGATIVE); COLOR, URINE YELLOW (YELLOW); GLUCOSE, URINE (UA) AUTO NEGATIVE (NEGATIVE); KETONE, URINE AUTO NEGATIVE (NEGATIVE); LEUKOCYTE ESTERASE, URINE AUTO 3+ (NEGATIVE); MUCUS, URINE SMALL (NEGATIVE); NITRITE, URINE AUTO NEGATIVE (NEGATIVE); PROTEIN, URINE AUTO 2+ mg/dL (NEGATIVE); RBC, URINE AUTO 152 /HPF (0-3); SPECIFIC GRAVITY URINE AUTO 1.012 (1.002-1.035); SQUAMOUS EPITHELIAL CELL UR AU 0 /HPF (0-6); UROBILINOGEN, URINE AUTO 0.2 mg/dL (0.0-2.0); WBC, URINE AUTO 27 /HPF (0-3)
[2021-03-19 17:42] LABS: HEMATOCRIT 49.5 % (42.0-52.0); HEMOGLOBIN 16.9 g/dl (13.5-17.5); MEAN CORPUSCULAR HEMOGLOBIN 31.4 pg (27.0-33.0); MEAN CORPUSCULAR HGB CONC 34.1 g/dl (32.0-36.5); MEAN CORPUSCULAR VOLUME 91.8 fl (80.0-96.0); PLATELET COUNT, AUTOMATED 241 10^3/uL (150-450); RED BLOOD COUNT 5.39 10^6/uL (4.30-6.10); WHITE BLOOD COUNT 6.3 10^3/uL (4.0-10.0)
[2021-03-19 17:55] LABS: INR 1.01; PARTIAL THROMBOPLASTIN TIME 31.9 SECONDS (25.9-37.0); PROTHROMBIN TIME 13.7 SECONDS (12.7-14.5)
[2021-03-19 18:09] LABS: BLOOD UREA NITROGEN 12 MG/DL (7-18); CALCIUM LEVEL 9.1 MG/DL (8.8-10.2); CARBON DIOXIDE LEVEL 32 MEQ/L (21-32); CHLORIDE LEVEL 107 MEQ/L (98-107); CREATININE FOR GFR 1.05 MG/DL (0.70-1.30); GLOMERULAR FILTRATION RATE > 60.0 (>49); GLUCOSE, FASTING 85 MG/DL (70-100); LDH LACTATE DEHYDROGENASE 191 U/L (87-241); POTASSIUM SERUM 4.6 MEQ/L (3.5-5.1); SODIUM LEVEL 140 MEQ/L (136-145)
== END ==
LOC: M WUC 13:05
PROVIDERS: ATTEND Nurse Practitioner Family
DX: Z01.818 Encounter for other preprocedural examination (principal); N20.0 Calculus of kidney; N50.9 Disorder of male genital organs, unspecified

== ENCOUNTER → 2021-03-21 | Outpatient (CLI) | payer MEDICARE | LOC: M LABSMTC 11:50 | PROVIDERS: ATTEND Anesthesiology | DX: Z01.812 Encounter for preprocedural laboratory examination (principal); Z20.822 Contact with and (suspected) exposure to COVID-19 | CPT/HCPCS: G0463; U0002 ==

== ENCOUNTER 2021-03-22 13:54 | Day surgery (SDC) | payer MEDICARE ==
[~2021-03-22] VITALS: Ht 162.6 cm; Wt 82.0 kg
[~2021-03-22 13:54] MED LIST changes: -BACT400T PO; +KETOROLAC 60MG 2ML VIAL As Ordered ONE; +LIDOCAINE 1% MDV 20ML VIAL SQ PRN; +LIDOCAINE 2% 100MG/5ML SDV (FOR ANES.) As Ordered ONE; +LR 1,000 ML IV ONE; +MIDAZOLAM INJ 2MG/2ML VIAL (J2250 PER 1MG) As Ordered ONE; +ONDANSETRON 4MG/2ML VIAL As Ordered ONE; -PYRI1TAB5 PO; +ceFAZolin SOD 2 GM in IV 1 EA IV ONE; +dexameTHASONE 4 MG/ML 1ML VIAL (J1100 PER 1MG) As Ordered ONE; +fentaNYL 100 MCG/2 ML INJECTION (J3010) As Ordered ONE; +propofoL 200 MG/20 ML VIAL As Ordered ONE
[2021-03-22] MEDS ORDERED: CONRAY-60 60% 50ML VIAL (Q9961) As Ordered ONE (14:01)
[2021-03-22] MEDS ORDERED: propofoL 200 MG/20 ML VIAL As Ordered ONE (15:09)
[2021-03-22] MEDS ORDERED: BACT400T PO (15:33)
[2021-03-22] MEDS ORDERED: OXYB5TAB10 PO (15:33)
[2021-03-22] MEDS ORDERED: PYRI1TAB5 PO (15:33)
--- NOTE | 2021-03-22 15:56 | REP ---
INDICATION: RIGHT STENT PLACEMENT. COMPARISON: None. TECHNIQUE: A single C-arm view abdomen and pelvis is performed. FINDINGS: A right ureteral stent is visualized. The distal end is in the region of the urinary bladder. The proximal end forms a loop which is not tightly coiled in the right upper quadrant. Multiple metallic clips are seen in the right inferior pelvic region. IMPRESSION: 13 seconds fluoroscopy time utilized. <Electronically signed by Berny Morel > 03/22/21 [id number]
[2021-03-22] MEDS ORDERED: fentaNYL 100 MCG/2 ML INJECTION (J3010) IV PRN (16:15)
[2021-03-22] MEDS ORDERED: ONDANSETRON 4MG/2ML VIAL IV PRN (16:15)
[2021-03-22] MEDS ORDERED: MEPERIDINE INJ 25 MG/ML VIAL (J2175) IV PRN (16:15)
[2021-03-22] MEDS ORDERED: oxyCODONE 5MG TAB PO PRN (16:15)
[2021-03-22] MEDS ORDERED: LR 1,000 ML IV SCH ×2 (16:15)
[2021-03-22 17:00] VITALS: BP 126/76
--- NOTE | 2021-03-23 14:29 | ROOPDOC ---
[facility] Report Of Operation Report of Operation DATE OF PROCEDURE: 03/22/21 PREPROCEDURE DIAGNOSES: [Right ureteral stone status post stent]. POSTPROCEDURE DIAGNOSES: [Same]. PROCEDURE PERFORMED: [Cystoscopy, fluoroscopy with interpretation of images, right stent removal/replacement, right flexible and rigid ureteroscopy, laser lithotripsy, basket stone extraction]. SURGEON: [Justice Lewis, S[employer]INE OPERATOR: [None], MD ANESTHESIA: [General LMA]. ESTIMATED BLOOD LOSS: Approximately [minimal] mL. COMPLICATIONS: [None]. REMARKS: [65-year-old white male. Found to have a right ureteral stone causing obstruction and pain. Stent placed. Surgery then arranged to remove the stone. Informed consent obtained. Risks were discussed such as infection, pain, bleeding, scarring, injury to the urinary tract, failure of surgery, need for more surgery, risks of anesthesia and others.]. FINDINGS: SPECIMENS REMOVED: [Stone fragment] PROCEDURE NOTE: . DESCRIPTION OF PROCEDURE: [I met with the patient in the preop area. Surgery discussed. Informed consent obtained. Patient wished to proceed. Patient brought to the OR. Surgery done under antimicrobial coverage. Dorsolithotomy position. Well-padded. General anesthesia secured without difficulty. Timeout performed. Prepped and draped in the usual sterile fashion. Rigid cystoscopy was performed. No stricture. Mild BPH. Stent on the right was pulled to the external urethral meatus with a rigid grasper after which a wire was advanced through it to the kidney as seen using fluoroscopy. Stent then removed. A second wire was passed up the ureter. Over the second wire was passed a flexible ureteroscope. No difficulty was encountered. The renal pelvis and calyces were inspected. The stone in question, easily seen on fluoroscopy, was encountered. I was able to basket the stone. I pulled the stone down the ureter to a point where it I could no longer do so. The basket was cut after which the flexible ureteroscope was removed. Rigid ureteroscopy was then performed. The stone in the basket was encountered. Laser lithotripsy was performed. With a new stone basket all the fragments were removed. Once satisfied a six Sami multilength stent was placed using the Seldinger technique. Bladder was emptied and the cystoscope was removed. Patient tolerated all very well. Fluoroscopy was used intermittently. Some images were saved. Home with antibiotic. YOLI LEWIS MD Mar 23, 2021 14:29
== END 2021-03-22 17:00 | disposition home or self-care (01) ==
LOC: M SDC 13:54
PROVIDERS: ATTEND Urology
DX: N20.1 Calculus of ureter (principal); I10 Essential (primary) hypertension; E78.5 Hyperlipidemia, unspecified; E03.9 Hypothyroidism, unspecified; K57.90 Diverticulosis of intestine, part unspecified, without perforation or abscess without bleeding; K21.9 Gastro-esophageal reflux disease without esophagitis; G47.30 Sleep apnea, unspecified; F41.9 Anxiety disorder, unspecified; F32.9 Major depressive disorder, single episode, unspecified; N40.0 Benign prostatic hyperplasia without lower urinary tract symptoms; Z79.899 Other long term (current) drug therapy
CPT/HCPCS: 52356; 74420; 82365; 88300; C1769; C2617; J0690; J1100; J1885; J2250; J2405; J3010; Q9961